=== PATIENT | male | born 1965 | race Caucasian/White ===

== ENCOUNTER 2018-10-24 07:05 | Day surgery (SDC) | payer OTHER ==
[2018-10-21 14:47] VITALS: BMI 29.9
[2018-10-24 07:44] VITALS: TEMP 98
[2018-10-24] MEDS ORDERED: ACETAMINOPHEN 325 MG TABLET (FP) ONE (09:35)
[2018-10-24 10:05] VITALS: BP 122/84; PULSE 70
[2018-10-24 10:28] LABS: BASO % 0.6 % (0-2.0); HEMATOCRIT 39.5 % (35.4-49); HEMOGLOBIN 14.1 GM/dL (11.7-16.9); LYMPH % 38.1 % (8-40); MCH 30.7 pg (25.7-33.7); MCHC 35.8 g/dl (32.0-35.9); MEAN CELL VOLUME 85.8 fl (80-96); MEAN PLT VOLUME 8.4 fl (7.5-11.1); MONO % 7.7 % (3.8-10.2); NEUT % 50.6 % (42.8-82.8); PLATELET COUNT 210 K/MM3 (134-434); RDW 13.4 % (11.9-15.9); WHITE BLOOD COUNT 4.3 K/mm3 (4.0-10.0)
[2018-10-24 11:04] LABS: ALBUMIN 3.6 g/dl (3.4-5.0); ALK PHOS 24 U/L (45-117); ANION GAP 7 MMOL/L (8-16); BILIRUBIN,TOTAL 0.4 mg/dL (0.2-1); BLOOD UREA NITROGEN 14 mg/dL (7-18); CHLORIDE 103 mmol/L (98-107); CO2 30 mmol/L (21-32); CREATININE 1.1 mg/dL (0.55-1.3); GLUCOSE,RANDOM 114 mg/dL (74-106); POTASSIUM 3.5 mmol/L (3.5-5.1); SGOT/AST 17 U/L (15-37); SGPT/ALT 32 U/L (13-61); SODIUM 140 mmol/L (136-145); TOT PROT 6.5 g/dl (6.4-8.2)
[2018-10-24] MEDS ORDERED: ACETAMINOPHEN 325 MG TABLET (FP) PO ONE (12:38)
[2018-10-25 05:14] LABS: CARCINOEMBRYONIC ANTIGEN 1.5 ng/mL (0.0-4.7)
--- NOTE | 2018-10-25 16:22 | PATH ---
Surgical Pathology Report Patient Name: FUNMILAYO BOSE [facility]. Rec. #: [id number] /Age/Gender: 1965 (Age: 53) / M Account: [id number] Location: U-ENDOSCOPY Taken: 10/24/2018 Received: 10/24/2018 Reported: 10/25/2018 Physicians: Liz Waller M.D. Specimen(s) Received A: SECOND PORTION DUODENUM AND BULB B: ANTRUM C: GASTRIC ULCER D: GE JUNCTION E: MID ESOPHAGUS F: ILEOCECAL VALVE POLYP Clinical History GERD, polyp surveillance Postoperative diagnosis: GERD, gastric antrum polyp, gastric ulcer, diverticulosis, polyp ileocecal valve Final Diagnosis A. DUODENUM, SECOND PORTION AND DUODENAL BULB, BIOPSY: DUODENAL MUCOSA WITH MILD CHRONIC DUODENITIS. B. ANTRUM, SUBMUCOSAL POLYP, BIOPSY: POLYPOID GASTRIC ANTRAL MUCOSA WITH MILD CHRONIC GASTRITIS AND FOCAL DILATED GLANDS. IMMUNOHISTOCHEMICAL STAIN FOR H. PYLORI IS NEGATIVE. C. GASTRIC ULCER, BIOPSY: GASTRIC MUCOSA WITH MODERATE CHRONIC GASTRITIS, FOCAL EROSION, AND INTESTINAL METAPLASIA. IMMUNOHISTOCHEMICAL STAIN FOR H. PYLORI IS NEGATIVE. D. GE JUNCTION, BIOPSY: SQUAMOUS MUCOSA WITH VASCULAR CONGESTION, MILD CHRONIC INFLAMMATION, AND CHANGES OF MODERATE REFLUX ESOPHAGITIS. NO COLUMNAR MUCOSA, INTESTINAL METAPLASIA, OR DYSPLASIA IDENTIFIED. E. MID ESOPHAGUS, BIOPSY: SQUAMOUS MUCOSA WITH MILD VASCULAR CONGESTION AND MILD REFLUX TYPE CHANGES F. ILEOCECAL VALVE, POLYP, BIOPSY: POLYPOID COLONIC MUCOSA WITH PROMINENT LYMPHOID AGGREGATE. Electronically Signed Marjorie Ortiz M.D. Gross Description A. Received in formalin, labeled "biopsy second portion of duodenum and duodenal bulb" are 3 lundberg, irregular portions of soft tissue ranging from 0.4-0.8 cm. in greatest dimension. The specimens are submitted in toto in one cassette. B. Received in formalin, labeled "biopsy submucosal polyp antrum" are 3 lundberg, irregular portions of soft tissue ranging from 0.2-0.4 cm. in greatest dimension. The specimens are submitted in toto in one cassette. C. Received in formalin, labeled "biopsy gastric ulcer" are 3 lundberg, irregular portions of soft tissue averaging 0.4 cm. in greatest dimension. The specimens are submitted in toto in one cassette. D. Received in formalin, labeled "biopsy GE junction" are 4 lundberg, irregular portions of soft tissue ranging from 0.3-0.5 cm. in greatest dimension. The specimens are submitted in toto in one cassette. E. Received in formalin, labeled "biopsy mid esophagus" are 2 lundberg, irregular portions of soft tissue measuring 0.2 and 0.3 cm. in greatest dimension. The specimens are submitted in toto in one cassette. F. Received in formalin, labeled "biopsy polyp ileocecal valve" are 2 lundberg, irregular portions of soft tissue measuring 0.2 and 0.8 cm. in greatest dimension. The specimens are submitted in toto in one cassette. 10/24/2018 [facility]10/24/2018
== END 2018-10-24 11:40 | disposition home or self-care (01) ==
LOC: JASU-ENDO 07:05
PROVIDERS: ATTEND Internal Medicine Gastroenterology
PROC: 0DB48ZX Excision of Esophagogastric Junction, Via Natural or Artificial Opening Endoscopic, Diagnostic (ICD-10-PCS; 2018-10-24)
PROC: 0DB68ZX Excision of Stomach, Via Natural or Artificial Opening Endoscopic, Diagnostic (ICD-10-PCS; 2018-10-24)
PROC: 0DB28ZX Excision of Middle Esophagus, Via Natural or Artificial Opening Endoscopic, Diagnostic (ICD-10-PCS; 2018-10-24)
PROC: 0DB38ZX Excision of Lower Esophagus, Via Natural or Artificial Opening Endoscopic, Diagnostic (ICD-10-PCS; 2018-10-24)
PROC: 0DBC8ZX Excision of Ileocecal Valve, Via Natural or Artificial Opening Endoscopic, Diagnostic (ICD-10-PCS; principal; 2018-10-24 08:00)
DX: Z12.11 Encounter for screening for malignant neoplasm of colon (principal); Z86.010 Personal history of colon polyps; D12.6 Benign neoplasm of colon, unspecified; K64.8 Other hemorrhoids; K57.30 Diverticulosis of large intestine without perforation or abscess without bleeding; K21.9 Gastro-esophageal reflux disease without esophagitis; K44.9 Diaphragmatic hernia without obstruction or gangrene; K25.9 Gastric ulcer, unspecified as acute or chronic, without hemorrhage or perforation
CPT/HCPCS: 36415; 80053; 82378; 82941; 85025; 86140; 88305-TC; 88342-TC

== ENCOUNTER 2022-03-23 04:43 | Day surgery (SDC) | payer BC ==
[2022-03-18 14:10] VITALS: BMI 29.2
[2022-03-23 10:34] VITALS: TEMP 96.7
[2022-03-23 11:37] VITALS: BP 115/89; PULSE 65; RESP 17
== END 2022-03-23 11:49 | disposition home or self-care (01) ==
LOC: JASU-ENDO 04:43
PROVIDERS: ATTEND Internal Medicine Gastroenterology
PROC: 0DB98ZX Excision of Duodenum, Via Natural or Artificial Opening Endoscopic, Diagnostic (ICD-10-PCS; 2022-03-23)
PROC: 0DB78ZX Excision of Stomach, Pylorus, Via Natural or Artificial Opening Endoscopic, Diagnostic (ICD-10-PCS; 2022-03-23)
PROC: 0DB68ZX Excision of Stomach, Via Natural or Artificial Opening Endoscopic, Diagnostic (ICD-10-PCS; 2022-03-23)
PROC: 0DB48ZX Excision of Esophagogastric Junction, Via Natural or Artificial Opening Endoscopic, Diagnostic (ICD-10-PCS; 2022-03-23)
PROC: 0DBC8ZX Excision of Ileocecal Valve, Via Natural or Artificial Opening Endoscopic, Diagnostic (ICD-10-PCS; principal; 2022-03-23 10:00)
DX: Z12.11 Encounter for screening for malignant neoplasm of colon (principal); D12.0 Benign neoplasm of cecum; K57.30 Diverticulosis of large intestine without perforation or abscess without bleeding; K64.8 Other hemorrhoids; K29.50 Unspecified chronic gastritis without bleeding
CPT/HCPCS: 88305-TC; 88342-TC